=== PATIENT | male | born 1955 | race Caucasian/White ===

== ENCOUNTER 2018-03-18 16:32 | Outpatient (CLI) | payer BC ==
[2018-03-18 17:13] LABS: Hemoglobin 14.4 g/dL (14.0-18.0); Mean Corpuscular Hemoglobin 31.2 pg (27.0-31.0); Mean Corpuscular Volume 94.8 fl (80.0-94.0); Mean Platelet Volume 8.3 fL (7.4-10.4); Platelet Count 234 thou/uL (130-400); RBC Distribution Width 11.4 % (11.5-14.5); Red Blood Cell (RBC) Count 4.61 mill/uL (4.70-6.10); White Blood Cell (WBC) Count 6.2 thou/uL (4.8-10.8)
[2018-03-18 17:16] LABS: INR-International Normal Ratio 1.2; PTT 32.7 SEC (22.9-36.1)
[2018-03-18 17:41] LABS: ALT (SGPT) 14 U/L (8-55); AST (SGOT) 19 U/L (5-34); Albumin 4.3 g/dL (3.5-5.0); Alkaline Phosphatase 66 U/L (40-150); Anion Gap 8 mmol/L (10-20); BUN (Urea Nitrogen) 16 mg/dL (8.4-25.7); Bilirubin, Direct 0.3 mg/dL (0.1-0.3); Bilirubin, Total 0.6 mg/dL (0.2-1.2); Calc. Creatinine Clearance 0 mL/min (70-130); Calcium 9.4 mg/dL (7.8-10.44); Carbon Dioxide 29 mmol/L (22-29); Chloride 106 mmol/L (98-107); Estimated GFR-MDRD Greater than 90; Glucose 88 mg/dL (70-105); Sodium 139 mmol/L (136-145)
--- NOTE | 2018-03-19 15:43 | EKG ---
Test Reason : Blood Pressure : / mmHG Vent. Rate : 058 BPM Atrial Rate : 058 BPM P-R Int : 166 ms QRS Dur : 086 ms QT Int : 394 ms P-R-T Axes : 053 050 039 degrees QTc Int : 386 ms Sinus bradycardia Possible Left atrial enlargement ST elevation, consider early repolarization Borderline ECG Confirmed by AMARJIT BARAHONA ([id number]) on 03/19/2018 3:42:37 PM Referred By: GENEVIEVE Confirmed By:AMARJIT BARAHONA
== END 2018-03-18 16:33 | disposition home or self-care (01) ==
LOC: LABBT 16:32
PROVIDERS: ATTEND Urology
DX: Z01.818 Encounter for other preprocedural examination (principal); N40.0 Benign prostatic hyperplasia without lower urinary tract symptoms
CPT/HCPCS: 80048; 80076; 81001; 85027; 85610; 85730; 93005; 93010

== ENCOUNTER 2018-03-26 10:37 | Day surgery (SDC) | payer BC ==
[2018-03-18 16:54] VITALS: BMI 23.2
[2018-03-26] MEDS ORDERED: Dexamethasone 4 mg/ml Vial ONE (11:22)
[2018-03-26] MEDS ORDERED: Levofloxacin 500 mg/D5W 100 ml Premix Bag ONE (11:22)
[2018-03-26] MEDS ORDERED: Furosemide 20 MG/2 ML VIAL ONE (12:06)
[2018-03-26] MEDS ORDERED: B & O ONE (12:06)
[2018-03-26] MEDS ORDERED: Midazolam HCl 2 mg/2 ml Vial ONE (12:17)
[2018-03-26] MEDS ORDERED: Fentanyl 100 MCG/2 ML VIAL ONE ×2 (12:17→14:16)
--- NOTE | 2018-03-26 15:22 | OP ---
DATE OF SERVICE: 03/26/2018 PREOPERATIVE DIAGNOSIS: Benign prostatic hypertrophy. POSTOPERATIVE DIAGNOSIS: Benign prostatic hypertrophy. PROCEDURE PERFORMED: GreenLight laser vaporization of the prostate with enucleation the middle lateral lobes using 180,423 joules. SPECIMEN: Prostate. COMPLICATIONS: None. BLOOD LOSS: Minimal. DRAINS: Remaining 20-Jordanian 2-way. INDICATIONS: The patient is a 62-year-old male who has had BPH and was set for definitive surgical therapy. TECHNIQUE: The patient was brought to the room by Anesthesia, laid on the table in the supine position after receiving general anesthetic. His legs were placed in lithotomy position. Perineum was prepped and draped in sterile fashion. Using a 22.5 Jordanian cystoscope and a 30 degree lens, it was traversed and the bladder inspected. The middle lobe was quite prominent and obstructing and had to angle the scope significantly to get up and over it, but otherwise the bladder was without lesions. Ureteral orifices were identified and preserved throughout the case. The middle lobe was initially ablated using a power level of 8 and a power level of 180 was used in the bladder neck and near the otherwise power level of 180 was used to enucleate the lateral lobes as well. The scope was removed. A good stream was noted. Scope was put back in. Chips were ensured to be out. A grasper was used for the larger chips. At a low volume, no significant bleeding was noted, so the scope was scope was removed a final time. A 20-Jordanian Ojeda was placed to gravity. The patient tolerated procedure well and was then awakened and transferred to the PACU in stable condition. [facility]
[2018-03-26] MEDS ORDERED: Lidocaine 1% PF 5 ML VIAL ONE (16:04)
[2018-03-26] MEDS ORDERED: ePHEDrine/0.9% NaCl/PF SYRINGE 50 mg/10 ml ONE (16:04)
[2018-03-26] MEDS ORDERED: Dexamethasone 20 MG/5 ML VIAL ONE (16:04)
[2018-03-26] MEDS ORDERED: PROPOFOL 200 MG/20 ML VIAL ONE (16:04)
[2018-03-26] MEDS ORDERED: Ondansetron ODT 4 MG TAB ONE (16:23)
[2018-03-26] MEDS ORDERED: Morphine 4 MG/ML VIAL ONE (16:48)
== END 2018-03-26 17:56 | disposition home or self-care (01) ==
LOC: SDC 10:37
PROVIDERS: ATTEND Urology
PROC: 0V508ZZ Destruction of Prostate, Via Natural or Artificial Opening Endoscopic (ICD-10-PCS; principal; 2018-03-26)
DX: N40.1 Benign prostatic hyperplasia with lower urinary tract symptoms (principal); R35.0 Frequency of micturition; R39.11 Hesitancy of micturition; R39.14 Feeling of incomplete bladder emptying; R35.1 Nocturia; R39.15 Urgency of urination; R39.12 Poor urinary stream; R97.20 Elevated prostate specific antigen [PSA]; E03.9 Hypothyroidism, unspecified; Z79.51 Long term (current) use of inhaled steroids; Z79.899 Other long term (current) drug therapy; Z88.0 Allergy status to penicillin
CPT/HCPCS: 88305; 96374; J1100; J1940; J1956; J2001; J2250; J2270; J2704; J3010; Q0162

== ENCOUNTER 2018-12-04 09:01 | Outpatient (CLI) | payer BC ==
--- NOTE | 2018-12-04 11:30 | ULT ---
RIGHT UPPER QUADRANT ULTRASOUND: INDICATIONS: History of gallbladder polyp. COMPARISON: Provided limited abdominal ultrasound report from [facility], performed on 03/30/2017. No images are provided. TECHNIQUE: Hackett-scale and color Doppler with spectral Doppler images were obtained of the right upper quadrant. FINDINGS: There are two small, nonmobile, intraluminal, echogenic foci within the gallbladder lumen. One is ad herent to the anterior-inferior gallbladder fundal wall, measuring 4 x 3.3 x 5 mm. An additional 5.2 x 3.9 x 3 mm adherent oval focus is seen involving the inferior gallbladder body. There is no appre ciable shadowing. These are nonmobile. No additional focus is grossly evident. No gallbladder wall thickening is evident. No sonographic Campos sign is reported. The common bile duct measures 2.6 m m. The liver, visualized pancreas, and kidney are unremarkable. The right kidney measures 11.7 x 4.7 x 4.7 cm. There is appropriate hepatopetal flow within the main portal vein. IMPRESSION: Subcentimeter suspected gallbladder polyps involving the gallbladder. The largest measures up to 5 m m. Would recommend a follow-up examination in one year to document stability. No additional acute s onographic abnormality is seen within the right upper quadrant. POS: [facility]
== END 2018-12-04 09:02 | disposition home or self-care (01) ==
LOC: BICULT 09:01
PROVIDERS: ATTEND Physician Assistant
DX: K82.4 Cholesterolosis of gallbladder (principal)
CPT/HCPCS: 76705

== ENCOUNTER 2019-10-28 06:58 | Outpatient (CLI) | payer BC ==
--- NOTE | 2019-10-28 07:50 | ULT ---
Exam: Right upper quadrant ultrasound: HISTORY: Follow-up gallbladder polyps. COMPARISON: 12/04/2018 FINDINGS: Liver: Within normal limits. Gallbladder: There are 2 adherent nonmobile echogenic foci seen along the nondependent gallbladder wa ll again likely related to gallbladder polyps measuring 5 and 3 mm respectively. Gallbladder polyps on the prior study each measured approximately 5 mm in maximal dimension. The change in size may be r elated to interobserver variance. No gallbladder calculi are seen, and there is no gallbladder wall thickening present. Common bile duct: The common duct is normal in caliber measuring 3 mm in diameter. Pancreas: Mostly obscured. Right kidney: Right kidney demonstrates a normal sonographic appearance. The right kidney measures 9 .8 cm in length. IVC: The visualized IVC demonstrates a normal sonographic appearance. IMPRESSION: Stable subcentimeter suspected gallbladder polyps along the nondependent wall of the gallbladder larg est measuring approximately 5 mm. Continued follow-up evaluation in one year is recommended.
== END 2019-10-28 06:59 | disposition home or self-care (01) ==
LOC: BICULT 06:58
PROVIDERS: ATTEND Family Medicine
DX: K82.4 Cholesterolosis of gallbladder (principal)
CPT/HCPCS: 76705

== ENCOUNTER 2021-01-04 21:05 | Observation (INO) | payer BC ==
[2021-01-04] MEDS ORDERED: Famotidine 20 MG TAB PO SCH (22:00)
[2021-01-04 22:11] VITALS: BMI 22.9
[2021-01-04] MEDS ORDERED: hydrALAZINE 20 MG/ML VIAL SLOW IVP PRN (22:27)
[2021-01-04] MEDS ORDERED: Labetalol HCl 100 MG/20 ML VIAL SLOW IVP PRN (22:27)
[2021-01-04] MEDS ORDERED: Acetaminophen 325 MG TAB PO PRN (22:29)
[2021-01-04] MEDS ORDERED: Ondansetron ODT 4 MG TAB PO PRN (22:29)
--- NOTE | 2021-01-04 22:49 | PDOC.HHP ---
Hospitalist HPI Slurred speech History of Present Illness: PCP: Josselyn Powell Patient is a 65-year-old male with a past medical history significant for hypothyroidism that presents to the hospital as a transfer from [place] [facility] for the above complaint. The patient reports experiencing difficulty entering his password while working on his computer at home at approximately 12 o'clock this afternoon. He said that he "did not seem right". He had associated lightheadedness. His symptoms lasted for about 15 to 20 minutes. He began to feel better, so he took his usual daily nap, which lasted approximately 15 minutes. After waking from his nap, he wrote a paper on his computer and then took out the trash without any difficulties. While on the phone, he developed slurred speech, which lasted less than 15 minutes and resolved spontaneously. He reports recent stressors in his life. 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 He is also preparing to retire from his job, so things have been stressful. He denies any recent fall or trauma. No headaches, neck stiffness, or changes in vision. No recent fever/illness. No known sick contacts. No known Covid contacts. No loss of smell or taste. He recently received his first dose of the Covid vaccine 8 days ago. No recent changes to his home medications. Denies chest pain, heart palpitations or swelling his lower extremities. Denies shortness of breath, cough, wheezing. No history of DVT/PE. Denies any dysuria hematuria. Denies any abdominal pain, nausea, vomiting, diarrhea. He called his PCP, who performed a modified stroke assessment via telephone. His symptoms had resolved. He was instructed to follow up with his PCP on and take an aspirin daily. His felt that he should go to the Emergency Department for further evaluation. [facility] Presented stable vital signs. EKG normal sinus rhythm CT brain negative for any acute process. CTA head and neck negative for stenosis, dissection, occlusion. CXR no acute process. Influenza and Covid testing negative UA unremarkable CMP and CBC unremarkable Medication ministration: Full dose aspirin. Allergies/Adverse Reactions: Allergy/AdvReac Type Severity Reaction Status Date / Time amoxicillin Allergy Severe Verified 01/04/21 21:39 Home Medications: Medication Instructions Recorded Confirmed Type Cetirizine HCl [Zyrtec] 10 mg PO DAILY 03/18/18 01/04/21 History Fluticasone Propionate 2 inh INH DAILY 03/18/18 01/04/21 History Levothyroxine Sodium 50 mcg PO DAILY 03/18/18 01/04/21 History Famotidine [Pepcid AC] 20 mg PO BID 01/04/21 01/04/21 History Past History: PMHx: Hypothyroidism, allergic rhinitis PSHx: None FHx: Negative for CVA Social: Never smoked, no illicit drug use, alcohol rarely. Works from home in [employer]. Enjoys running daily. Hospitalist HPI ROS All other systems reviewed; all pertinent +/- noted in HPI/Subj Hospitalist Exam Vitals: Vital Signs (12 hours) Temp Pulse Resp BP Pulse Ox 01/04/21 21:05 98.5 F 66 18 125/73 95 Weight Weight 169 lb General Appearance: NAD, awake alert. negative: ill appearing Eye: PERRL, anicteric sclera ENT: normocephalic atraumatic, moist mucosa Neck: supple, no thyromegaly, no carotid bruit Heart: RRR, no murmur, no gallops, no rubs, normal peripheral pulses Respiratory: CTAB, no wheezes, no rales, no ronchi, normal chest expansion, no tachypnea Gastrointestinal: soft, non-tender, normal bowel sounds, no guarding, no rigidity Extremities: no cyanosis, no edema Neurological: cranial nerve grossly intact, no focal deficits Musculoskeletal: normal tone, normal strength Psychiatric: normal affect, A&O x 3 Hospitalist Results Lab results: Sodium 144, potassium 4.3, chloride 109, CO2 28, BUN 13, creatinine 0.6, glucose 108, calcium 9.6 LFTs unremarkable WBCs 6.8, hemoglobin 14.9, hematocrit 42.6, platelets 257 Influenza and Covid testing negative UA unremarkable PT 12.7, INR 1.1 EKG Status: image reviewed by me, report reviewed by me Additional Comments: Normal sinus rhythm, no ST elevations Chest x-ray Status: report reviewed by me Additional Comments: No acute process CT scan - head Status: report reviewed by me Additional Comments: No acute intracranial process Hospitalist H&P A/P (1) TIA (transient ischemic attack) Code(s): G45.9 - TRANSIENT CEREBRAL ISCHEMIC ATTACK, UNSPECIFIED Status: Acute (2) Slurred speech Code(s): R47.81 - SLURRED SPEECH Status: Acute (3) Hypothyroidism Code(s): E03.9 - HYPOTHYROIDISM, UNSPECIFIED Status: Chronic Plan: Patient with PMH hypothyroidism presents as transfer from [facility] for slurred speech, rule out TIA. Imaging no acute process. Given aspirin. Symptoms resolved prior to admission. #TIA Suspected. No known CV risk factors, no FxHx stroke, he runs/exercises daily. Received covid vaccine 8d ago, dog recently past 2 weeks ago. Order MRI, echocardiogram. Consult neurology and physical therapy. Continue aspirin. Patient has history of 2 episodes of hyperbilirubinemia, one episode thought to be viral and second episode thought to be from Augmentin. We will hold statin therapy per patient request, check FLP. Check TSH, mag level, B12/folate. Permissive hypertension. #Slurred speech Resolved prior to arrival. Likely related to problem #1. #Hypothyroidism Chronic, stable. Check TSH level. Restart home dose levothyroxine. SCDs for DVT prophylaxis. No GI prophylaxis. CODE STATUS is full code. Discussed case with the attending physician, Dr. Olguin, who agrees with plan of care.
[2021-01-05 05:06] LABS: #Eosinphils 0.6 thou/uL (0.0-0.7); #Lymphocytes 1.7 thou/uL (1.20-3.40); #Monocytes 0.6 thou/uL (0.11-0.59); #Neutrophils 3.3 thou/uL (1.40-6.50); %Basophils 0.7 % (0.0-1.0); %Eosinophils 9.5 % (0.0-10.0); %Lymphocytes 27.2 % (21.0-51.0); %Monocytes 9.7 % (0.0-10.0); Hemoglobin 13.6 g/dL (14.0-18.0); Mean Corpuscular Hemoglobin 31.1 pg (27.0-31.0); Mean Corpuscular Volume 94.3 fL (78.0-98.0); Mean Platelet Volume 8.4 fL (7.4-10.4); Platelet Count 230 thou/uL (130-400); RBC Distribution Width 11.4 % (11.5-14.5); Red Blood Cell (RBC) Count 4.38 mill/uL (4.70-6.10); White Blood Cell (WBC) Count 6.3 thou/uL (4.8-10.8)
[2021-01-05 05:28] LABS: Anion Gap 10 mmol/L (10-20); BUN (Urea Nitrogen) 13 mg/dL (8.4-25.7); Calc. Creatinine Clearance 104 mL/min (70-130); Calcium 8.4 mg/dL (7.8-10.44); Carbon Dioxide 25 mmol/L (23-31); Cardiac Risk 2.5 (Less than 4.5); Chloride 111 mmol/L (98-107); Cholesterol 151 mg/dl (< 200 Desired); Glucose 92 mg/dL (80-115); HDL Cholesterol 60 mg/dL (>60 Neg Risk); LDL Cholesterol, Calculated 77 mg/dL; Magnesium 2.1 mg/dL (1.6-2.6); Sodium 142 mmol/L (136-145); Triglycerides 72 mg/dL (Less than 150)
[2021-01-05 05:52] LABS: Thyroid Stimulating Hormone 2.017 uIU/mL (0.35-4.94)
[2021-01-05] MEDS ORDERED: Levothyroxine Sodium 50 MCG TAB PO SCH (06:00)
--- NOTE | 2021-01-05 08:52 | MRI ---
MRI brain without IV contrast Multiplanar and multisequential imaging of brain obtained according to protocol. INDICATIONS: TIA COMPARISON: none FINDINGS: Ventricles have normal size shape and position. No evidence of restricted diffusion. No significant white matter abnormality. No evidence of mass or edema. Intracranial internal carotid arteries, proximal cerebral arteries, and basilar arteries show normal flow voids. Dural venous sinuses appear patent. Visualized paranasal sinuses and mastoids appear clear. Orbits appear unremarkable. Bony calvarium and soft tissues of the scalp appear unremarkable. IMPRESSION: Unremarkable MRI of brain
[2021-01-05] MEDS ORDERED: Famotidine 20 MG TAB PO SCH (09:00)
[2021-01-05] MEDS ORDERED: Aspirin 325 mg Enteric Coated Tablet PO SCH (09:00)
[2021-01-05] MEDS ORDERED: Fluticasone Propionate Nasal Spray 16 gm Bottle NASAL SCH (09:00)
[2021-01-05] MEDS ORDERED: Loperamide HCl 2 MG CAP PO PRN (09:10)
[2021-01-05] MEDS ORDERED: Loratadine 10 MG TAB PO PRN (09:10)
[2021-01-05] MEDS ORDERED: Senokot S 8.6-50 MG TAB PO PRN (09:10)
[2021-01-05] MEDS ORDERED: Bisacodyl 5 MG TAB PO PRN (09:10)
[2021-01-05] MEDS ORDERED: Zolpidem Tartrate 5 MG TAB PO PRN (09:10)
[2021-01-05] MEDS ORDERED: Cepastat Lozenges 1 LOZ PO PRN (09:10)
[2021-01-05] MEDS ORDERED: Ondansetron PF 4 MG/2 ML Vial IVP PRN (09:10)
[2021-01-05] MEDS ORDERED: Calcium Carbonate 500 MG ChewTAB PO PRN (09:10)
[2021-01-05] MEDS ORDERED: GUAIFENESIN SF SOLN 200 MG/10 ML UDCUP PO PRN (09:10)
[2021-01-05] MEDS ORDERED: hydrALAZINE 20 MG/ML VIAL SLOW IVP PRN (09:11)
[2021-01-05] MEDS ORDERED: Labetalol HCl 100 MG/20 ML VIAL SLOW IVP PRN (09:11)
--- NOTE | 2021-01-05 12:00 | ULT ---
BILATERAL CAROTID DUPLEX ULTRASOUND: HISTORY: TIA versus CVA TECHNIQUE: Grayscale, color-flow and spectral Doppler ultrasound imaging of the extracranial carotid artery syst ems and vertebral arteries was performed bilaterally. FINDINGS: No large amount of echogenic plaque is seen involving the common carotid or internal carotid arteries . The peak systolic velocity in the right ICA measures 93.3 cm/s. The peak systolic velocity in the ri ght CCA measures 95.2 cm/s. The peak systolic velocity in the left ICA measures 71.6 cm/s. The peak systolic velocity in the l eft CCA measures 87.5 cm/s. The right IC/CC ration is1.0. The left IC/CC ratio is 0.8. Vertebral flow: antegrade, bilaterally. . IMPRESSION: No hemodynamically significant stenosis of left or right cervical carotid artery
--- NOTE | 2021-01-05 13:17 | CON ---
NEUROLOGY CONSULTATION DATE OF CONSULTATION: 01/05/2021 REASON FOR CONSULTATION: Slurred speech. HISTORY OF PRESENT ILLNESS: Mr. Hardwick is a 65-year-old male with medical history significant for hypothyroidism, presented as a transfer from an outside hospital because of episode of slurred speech. Per patient, he experienced difficulty entering his password while working on his computer at home around 12 p.m. on 01/03/2021. He knew that something was not right and this was associated with lightheadedness. The symptom lasted for about 15 to 20 minutes and then he felt better after taking a nap. He woke up from the nap and wrote a paper on his computer and took the trash out without any problems. This was followed by another episode of slurred speech, which lasted for about 10 minutes. He denies any prior episodes like this before. He denies nausea, vomiting, headache, chest pain, abdominal pain, recent illness, or recent exposure to COVID. He also denies focal numbness, focal paresthesias, double vision, loss of vision, dizziness, or loss of consciousness associated with the episode. He called his PCP, who performed a modified stroke assessment on the phone, and then asked him to come to the emergency room for further evaluation. In the emergency room, head CT was done, which was negative for acute intracranial pathology. EKG showed normal sinus rhythm. He was given full-dose aspirin and admitted for further evaluation. ALLERGIES: NO KNOWN DRUG ALLERGIES. HOME MEDICATIONS: 1. Cetirizine. 2. Fluticasone. 3. Levothyroxine. 4. Famotidine. PAST MEDICAL HISTORY: Hypothyroidism, allergic rhinitis. PAST SURGICAL HISTORY: None. FAMILY HISTORY: Negative for CVA. SOCIAL HISTORY: The patient denies smoking. Drinks alcohol rarely. No illegal drug use. He works from home in [employer] and has a healthy lifestyle. REVIEW OF SYSTEMS: All systems reviewed and were negative except the pertinent positives and negatives mentioned in the HPI. PHYSICAL EXAMINATION: VITAL SIGNS: Blood pressure 125/73, pulse 66, respiratory rate 18, temperature 98.5. General Appearance: NAD, awake alert. negative: ill appearing Eye: PERRL, anicteric sclera ENT: normocephalic atraumatic, moist mucosa Neck: supple, no thyromegaly, no carotid bruit Heart: RRR, no murmur, no gallops, no rubs, normal peripheral pulses Respiratory: CTAB, no wheezes, no rales, no ronchi, normal chest expansion, no tachypnea Gastrointestinal: soft, non-tender, normal bowel sounds, no guarding, no rigidity Extremities: no cyanosis, no edema Neurological: Mental status; the patient is alert and oriented to person, place, and time. Recent and remote memory intact. Fund of knowledge is appropriate. Speech is clear. Cranial nerves 2 through 12 intact. Motor, muscle tone and bulk are normal. Strength 5/5 bilaterally. Sensory intact. Cerebellar, finger-nose testing intact. Gait deferred due to the patient's safety reasons. DIAGNOSTIC STUDIES: Data reviewed. I reviewed the labs, which are essentially unremarkable. EKG showed normal sinus rhythm. Head CT did not reveal any acute intracranial pathology. Lab results: Sodium 144, potassium 4.3, chloride 109, CO2 28, BUN 13, creatinine 0.6, glucose 108, calcium 9.6 LFTs unremarkable WBCs 6.8, hemoglobin 14.9, hematocrit 42.6, platelets 257 Influenza and Covid testing negative UA unremarkable PT 12.7, INR 1.1 EKG Status: image reviewed by me, report reviewed by me Additional Comments: Normal sinus rhythm, no ST elevations Chest x-ray Status: report reviewed by me Additional Comments: No acute process CT scan - head Status: report reviewed by me Additional Comments: No acute intracranial process : ASSESSMENT AND PLAN: (1) TIA (transient ischemic attack) Code(s): G45.9 - TRANSIENT CEREBRAL ISCHEMIC ATTACK, UNSPECIFIED Status: Acute (2) Slurred speech Code(s): R47.81 - SLURRED SPEECH Status: Acute (3) Hypothyroidism Code(s): E03.9 - HYPOTHYROIDISM, UNSPECIFIED Status: Chronic Mr. Hardwick is a 65-year-old who presented with 2 episodes of dysarthria, most likely transient ischemic attack. MRI of the brain reviewed, which was negative for acute intracranial pathology. Carotid Dopplers did not reveal hemodynamically significant stenosis. 2D echo to evaluate for left ventricular ejection fraction is pending at this time. Continue aspirin for secondary stroke prevention. The patient has history of hyperbilirubinemia, so not on statin at this time. Check hemoglobin A1c, fasting lipid panel, and TSH. Continue home medications. Strict control of blood pressure and blood glucose. PT/OT/speech. Continue medical management per primary team. Plan discussed in detail with the patient and the at bedside. EEG to rule out cortical irritability. We will continue to follow. Thank you for the consult. Job ID: [id number] MTDD
--- NOTE | 2021-01-05 13:59 | PDOC.DS.DS ---
Provider Date of Admission: 01/04/21 21:05 Date of Discharge: 01/05/21 Admitting Provider: Jamal Hope MD Consultations: Neurology Primary Care Physician: Lupe Fulton Course Hospital Course: Patient is a 65-year-old male with a past medical history significant for hypothyroidism that presents to the hospital as a transfer from [place] [facility] for the above complaint. The patient reports experiencing difficulty entering his password while working on his computer at home at approximately 12 o'clock this afternoon. He said that he "did not seem right". He had associated lightheadedness. His symptoms lasted for about 15 to 20 minutes. He began to feel better, so he took his usual daily nap, which lasted approximately 15 minutes. After waking from his nap, he wrote a paper on his computer and then took out the trash without any difficulties. While on the phone, he developed slurred speech, which lasted less than 15 minutes and resolved spontaneously. He reports recent stressors in his life. 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 He is also preparing to retire from his job, so things have been stressful. He denies any recent fall or trauma. No headaches, neck stiffness, or changes in vision. No recent fever/illness. No known sick contacts. No known Covid contacts. No loss of smell or taste. He recently received his first dose of the Covid vaccine 8 days ago. No recent changes to his home medications. Denies chest pain, heart palpitations or swelling his lower extremities. Denies shortness of breath, cough, wheezing. No history of DVT/PE. Denies any dysuria hematuria. Denies any abdominal pain, nausea, vomiting, diarrhea. He called his PCP, who performed a modified stroke assessment via telephone. His symptoms had resolved. He was instructed to follow up with his PCP on and take an aspirin daily. His felt that he should go to the Emergency Department for further evaluation. ED Course: [facility]: Presented stable vital signs. EKG normal sinus rhythm CT brain negative for any acute process. CTA head and neck negative for stenosis, dissection, occlusion. CXR no acute process. Influenza and Covid testing negative UA unremarkable CMP and CBC unremarkable After admission patient had an MRI brain which was normal, carotid Doppler was normal, EEG was obtained, neurology saw this patient, Considering the TIA diagnosis we have prescribed aspirin and Lipitor on discharge, he will continue all his previous medication, patient is not requiring any antihypertensive medication. He is completely normal neurologically upon discharge Resuscitation Status: 01/04/21 22:29 Resuscitation Status Routine Co-Sign Provider: Resuscitation Status: FULL: Full Resuscitation Discussed with: patient Lab Results: 01/05/21 04:57 01/05/21 04:58 Abnormal Lab Results - Last 48 hrs 01/05/21 04:57: RBC 4.38 L, Hgb 13.6 L, Hct 41.3 L, MCH 31.1 H, RDW 11.4 L, Monocytes # 0.6 H 01/05/21 04:58: Chloride 111 H Vitals: Vital Signs (12 hours) Temp Pulse Resp BP BP Pulse Ox 01/05/21 12:00 98 F 69 18 122/74 99 01/05/21 08:59 98.6 F 69 14 110/78 98 01/05/21 04:00 98.4 F 81 16 136/77 96 Weight Weight 169 lb Physical Exam: The patient was seen and examined on the day of discharge. General Appearance: NAD, awake alert Eye: PERRL, anicteric sclera ENT: normocephalic atraumatic, no oropharyngeal lesions Neck: supple, symmetric, no JVD, no thyromegaly Respiratory: CTAB, no wheezes, no rales, no ronchi Cardiovascular: RRR, no murmur, no gallops, no rubs Gastrointestinal: soft, non-tender, non-distended, normal bowel sounds Extremities: no cyanosis, no clubbing, no edema Skin: normal turgor, no lesions Neurological: no focal deficits Musculoskeletal: normal tone, normal strength PSYCH: normal affect, normal behavior Problem (1) Slurred speech Code(s): R47.81 - SLURRED SPEECH Status: Acute (2) TIA (transient ischemic attack) Code(s): G45.9 - TRANSIENT CEREBRAL ISCHEMIC ATTACK, UNSPECIFIED Status: Acute (3) Hypothyroidism Code(s): E03.9 - HYPOTHYROIDISM, UNSPECIFIED Status: Chronic Plan Prescriptions: Aspirin [Ecotrin] 81 mg PO DAILY #30 tab Atorvastatin Calcium [Lipitor] 10 mg PO DAILY #30 tab Home Medications: Medication Instructions Recorded Confirmed Type Cetirizine HCl [Zyrtec] 10 mg PO DAILY 03/18/18 01/04/21 History Fluticasone Propionate 2 inh INH DAILY 03/18/18 01/04/21 History Levothyroxine Sodium 50 mcg PO DAILY 03/18/18 01/04/21 History Famotidine [Pepcid AC] 20 mg PO BID 01/04/21 01/04/21 History Aspirin [Ecotrin] 81 mg PO DAILY #30 tab 01/05/21 Rx Atorvastatin Calcium [Lipitor] 10 mg PO DAILY #30 tab 01/05/21 Rx Allergies: amoxicillin Allergy (Severe, Verified 01/04/21 21:39) severe jaundice c/ liver shutting down Activity:: Activity as Tolerated Nourishment:: Heart Healthy Diet Therapies:: Not Applicable Equipment/Supplies:: Not Applicable IV Therapy:: Not Applicable Referrals: Josselyn Powell MD [Primary Care Provider] - Disposition: HOME Quality CORE MEASURES:: Stroke/TIA Did you prescribe antithrombotic therapy?: Yes Did you prescribe anticoagulant for A Fib/Flutter?: No Specify reason for no DC anticoagulant: Treatment not indicated Did you prescribe a statin medication?: Yes
--- NOTE | 2021-01-05 15:36 | PDOC.EEG ---
Neurology EEG Report - Report Report: This EEG was performed using 24 channel [employer] video EEG machine with 24 disc electrodes. This was an extended 2 hours 8 minutes of inpatient video EEG recording. Digital analysis of the EEG was done for spike and seizure detection which revealed no abnormalities. Background: The posterior background rhythm is 8.5 -9 Hz. The backround rhythm attenuates with eye opening and enhances with eye closure. Hyperventilation: Not performed. Photic Stimulation: No significant response. Sleep: Drowsiness and sleep are observed. EEG Diagnosis: Occasional theta activity seen during the recording Clinical Interpretation: This EEG is consistent with mild, generalized , nonspecific cerebral dysfunction.
[2021-01-05 15:38] VITALS: BP 122/77; TEMP 97.4
== END 2021-01-05 16:49 | disposition home or self-care (01) ==
LOC: 3SE 21:05
PROVIDERS: ADMIT Internal Medicine; ATTEND Internal Medicine
DX: R47.1 Dysarthria and anarthria (principal); R42 Dizziness and giddiness; E03.9 Hypothyroidism, unspecified; J30.9 Allergic rhinitis, unspecified; Z88.1 Allergy status to other antibiotic agents; Z79.899 Other long term (current) drug therapy; Z20.822 Contact with and (suspected) exposure to COVID-19
CPT/HCPCS: 36415; 70551; 80048; 80061; 82607; 82746; 83735; 84443; 85025; 93306; 93880; 95712; 95819; 95957; G0378